=== PATIENT | male | born 1985 | race American Indian/Alaskan Native ===

== ENCOUNTER 2017-03-29 11:31 | Outpatient (CLI) | payer OTHER ==
--- NOTE | 2017-03-29 12:37 | XRay Report ---
RIGHT FOOT, 3 views: History: Right foot pain. The bony architecture is intact. Bony alignment is normal. No soft tissue abnormalities are seen. The joint spaces appear preserved. A moderate plantar spur is noted. IMPRESSION: Plantar spur, otherwise, unremarkable right foot films.
== END 2017-03-29 11:32 | disposition home or self-care (01) ==
LOC: SPVIMAG 11:31
PROVIDERS: ATTEND Internal Medicine
DX: M25.871 Other specified joint disorders, right ankle and foot (principal)